=== PATIENT | female | born 1980 | race Two or more races ===

== ENCOUNTER 2024-07-01 18:10 | Emergency (ER) | payer MEDICAID, OTHER ==
[~2024-07-01] VITALS: Ht 172.7 cm; Wt 100.0 kg
[2024-07-01 18:20] VITALS: BP 95/70; PULSE 73; RESP 15; O2SAT 96
== END 2024-07-01 18:40 | disposition left against medical advice (07) ==
LOC: ER 18:10 → EDBD 18:10 → ER 18:40
DX: R07.89 Other chest pain (principal); Z53.21 Procedure and treatment not carried out due to patient leaving prior to being seen by health care provider
CPT/HCPCS: 71045; 93005